=== PATIENT | female | born 1985 | race Caucasian/White ===

== ENCOUNTER 2016-10-03 11:47 | Emergency (ER) | payer OTHER ==
[~2016-10-03] VITALS: Ht 167.6 cm; Wt 104.3 kg
[2016-10-03] MEDS ORDERED: DIAZ10TA3 (12:18)
[2016-10-03] MEDS ORDERED: OXYC-471 (12:18)
[2016-10-03] MEDS ORDERED: CYCL10TA9 (12:18)
[2016-10-03] MEDS ORDERED: TRAM50TA2 (12:18)
[2016-10-03] MEDS ORDERED: METH4TAB PO (13:16)
[2016-10-03] MEDS ORDERED: ONDA4TAB8 PO (13:16)
--- NOTE | 2016-10-03 13:16 | ED Upper Extremity ---
General Chief Complaint: Upper Extremity Stated Complaint: RT ARM TINGLING, NECK PAIN, PREVIOUS WC INJ Nursing Triage Note: PT CO OF R ARM NUMBNESS, TINGLING AND PAIN WHEN USING THE R ARM AND PAIN AT NITE. PT HAD SURG IN ON JUN 01 FOR SHOULDER INJURY. PT STATES SENT BY ATTOURNEY. PT STATES HAS APPT IN ON OCT [address] FOR NUMBNESS. Nursing Sepsis Screen: No Definite Risk Source: patient History of Present Illness Time seen by provider: 13:00 Initial Comments PT C/O CHRONIC TINGLING/NUMBNESS AND PAIN TO RIGHT ARM C/O CHRONIC PAIN TO RIGHT LATERAL NECK AND TRAPEZIUS MUSCLE AREA--WORSE WITH RAISING RIGHT ARM OR LAYING ON IT. PT HAD SURGERY ON RIGHT SHOULDER FOR LABRAL TEAR 06/01/[address] 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 PT STATES SHE HAS BEEN TO 4 DIFFERENT DOCTORS AFTER HER SURGERY FOR THIS PROBLEM , AND WAS SEEN 08/23 AND WAS REFERRED TO ANOTHER DR FOR PAIN --DR. AVALOS IN [facility]. HAS AN APPOINTMENT 10/18/16 PT STATES WORK HAS REFUSED TO SEND HER TO ANOTHER DR, AND HER PORTAL ADMINISTRATOR TOLD HER TO COME HERE HER DR. IN [facility]-DR. JOLLY--HAS REFUSED TO SEE HER FOR THIS PROBLEM, IT IS WORK-RELATED. PT IS RIGHT HANDED NO NEW INJURY SYMPTOMS NO DIFFERENT TODAY HAS NOT TAKEN ANYTHING FOR PAIN TODAY--HAS TRAMADOL, PERCOCET AND FLEXERIL AT HOME. PCP: DR. JOLLY, [facility] Allergies and Home Medications Allergies Coded Allergies: hydrocodone (Verified Allergy, Mild, 10/03/16) sulfamethoxazole (Verified Allergy, Mild, 10/03/16) trimethoprim (Verified Allergy, Mild, 10/03/16) Home Medications Cyclobenzaprine HCl 10 Mg Tablet #90 (Reported) Diazepam 10 Mg Tablet #120 (Reported) Methylprednisolone 4 Mg Tab.ds.pk #1 4 MG PO UD Prescribed by: RUSS HUDSON on 10/03/16 1316 Ondansetron 4 Mg Tab.rapdis #10 4 MG PO Q4H Prescribed by: RUSS HUDSON on 10/03/16 1316 Oxycodone HCl/Acetaminophen 1 Each Tablet #60 (Reported) Tramadol HCl 50 Mg Tablet #120 (Reported) Constitutional: no symptoms reported Respiratory: no symptoms reported Cardiovascular: no symptoms reported Gastrointestinal: no symptoms reported Genitourinary: no symptoms reported Musculoskeletal: see HPI Skin: no symptoms reported Psychiatric/Neurological: See HPI Past Aefsmul-Falhwt-Thgrbf Hx Patient Social History Alcohol Use: Occasionally Uses Recreational Drug Use: No Smoking Status: Current Everyday Smoker Type Used: Cigarettes Recent Foreign Travel: No Contact w/Someone Who Travel: No Recent Infectious Disease Expo: No Recent Hopitalizations: No Physical Abuse Screen: No Sexual Abuse: No Seasonal Allergies Seasonal Allergies: No Surgeries HX Surgeries: Yes (R SHOULDER SURGERY FOR LABRAL TEAR 05/2016; 3 LEFT SHOULDER SURGERIES; ECTOPIC WITH SALPINGECTOMY; ) Surgeries: Gallbladder, Orthopedic, Tubal Ligation Respiratory Hx Respiratory Disorders: No Cardiovascular Hx Cardiac Disorders: No Neurological Hx Neurological Disorders: No Genitourinary Hx Genitourinary Disorders: No Gastrointestinal Hx Gastrointestinal Disorders: No Musculoskeletal Hx Musculoskeletal Disorders: Yes HEENT HX ENT Disorders: No Cancer Hx Cancer: No Psychosocial Hx Psychiatric Problems: Yes Behavioral Health Disorders: Anxiety Integumentary HX Skin/Integumentary Disorder: No Blood Transfusions Hx Blood Disorders: No Physical Exam Vital Signs Vital Sign - Last 12Hours 10/03/16 12:06 Temp 98.4 Pulse 86 Resp 18 B/P 154/95 Pulse Ox 97 Capillary Refill : Less Than 3 Seconds General Appearance: WD/WN HEENT: PERRL/EOMI Neck: tender lateral (ON RIGHT WITH MUSCLE SPASMS) Cardiovascular: regular rate, rhythm no murmur Respiratory: normal breath sounds no respiratory distress no accessory muscle use Gastrointestinal: normal bowel sounds soft Back: no CVA tenderness other (TENDERNESS AND MUSCLE SPASMS OVER RIGHT TRAPEZIUS MUSCLE--PALPATION REPRODUCES SYMPTOMS) Shoulder: non-tender no evidence of injury normal ROM Elbow/Forearm: normal inspection Wrist: Yes normal inspection Hand: normal inspection Neurologic/Tendon: normal sensation normal motor functions normal tendon functions Neurologic/Psychiatric: ad operations associate II-XII nml as tested no motor/sensory deficits ( HAS SUBJECTIVE TINGLING, BUT HAS SENSATION TO LIGHT TOUCH) alert normal mood/ affect oriented x 3 Skin: normal color warm/dryNo rash Progress/Results/Core Measures Results/Orders Vital Signs/I&O Blood Pressure Mean: 114 Departure Impression Impression: Primary Impression: CHRONIC RIGHT ARM RADICULOPATHY AND PARESTHESIAS Disposition: 01 HOME, SELF-CARE Condition: Stable Departure-Patient Inst. Referrals: CECIL JOLLY DO (PCP/Family) Primary Care Physician Patient Instructions: Radiculopathy (DC) Add. Discharge Instructions: ALTERNATE ICE AND HEAT TO AREA AT 20 MINUTE INTERVALS FOLLOW UP WITH YOUR SURGEON FOR FURTHER CARE KEEP YOUR SCHEDULED APPOINTMENT THIS MONTH All discharge instructions reviewed with patient and/or family. Voiced understanding. Scripts Ondansetron (Zofran Odt)4 Mg Tab.rapdis4 Mg PO Q4H Nausea/Vomiting #10 TAB Prov:RUSS HUDSON DO 10/03/16 Methylprednisolone (Medrol)4 Mg Tab.ds.pk4 Mg PO UD #1 PKG Prov:RUSS HUDSON DO 10/03/16 RUSS HUDSON DO Oct 03, 2016 13:16
[2016-10-03 13:20] VITALS: BP 154/95
== END 2016-10-03 13:20 | disposition home or self-care (01) ==
LOC: EDUNIT# 11:47 → ER 11:55
DX: M54.12 Radiculopathy, cervical region (principal); R20.2 Paresthesia of skin; M62.830 Muscle spasm of back; F17.210 Nicotine dependence, cigarettes, uncomplicated
CPT/HCPCS: 99283

== ENCOUNTER 2017-12-26 15:24 | Emergency (ER) | payer BC, OTHER ==
[~2017-12-26] VITALS: Ht 167.6 cm; Wt 104.3 kg
[~2017-12-26 15:24] MED LIST: CYCL10TA9; DIAZ10TA3; METH4TAB PO; ONDA4TAB8 PO; OXYC-471; TRAM50TA2
--- OUTSIDE RECORDS SUMMARY | 2017-12-26 15:38 | XMS REPORT | Clinical Summary ---
Author Author [facility] Organization [facility] Address Unknown Phone Unavailable Care Team Providers Care Title Investigator Name Role Phone Domingo Deluna PCP Source Comments Some departments are not documenting in the electronic medical record. If you do not see the information that you expected, contact Release of Information in the Health Information Management department at [phone] for further assistance in locating additional records.[facility] Allergies Active Allergy Reactions Severity Noted Date Comments Sulfamethoxazole-Trimetho HIVES, VOMITING Medium 01/02/2017 prim Hydrocodone ITCHING Low 01/02/2017 Current Medications Prescription Sig. Disp. Refills Start End Date Status Date oxyCODONE/acetaminophen Take 1 Tab by mouth every Active (PERCOCET) 10/325 mg 6 hours as needed for tablet Pain phentermine(+) (ADIPEX-P) Take 37.5 mg by mouth Active 37.5 mg tablet every morning. diclofenac sodium DR Take 75 mg by mouth twice Active (VOLTAREN) 75 mg tablet daily. Take with food. diazePAM (VALIUM) 10 mg Take 10 mg by mouth every Active tablet 6 hours as needed for Anxiety. cyclobenzaprine Take 10 mg by mouth three Active (FLEXERIL) 10 mg tablet times daily as needed for Muscle Cramps. citalopram (CELEXA) 40 mg Take 40 mg by mouth Active tablet daily. naloxegol (MOVANTIK) 25 Take by mouth daily. Active mg tablet sumatriptan succinate Take 100 mg by mouth as Active (IMITREX) 100 mg tablet Needed for Migraine symptoms. Dose may be repeated in 2 hours if needed. Max of 2 tablets in 24 hours. ALPRAZolam(+) (XANAX) 2 Take 2 mg by mouth at Active mg tablet bedtime as needed for Anxiety. Active Problems Not on file Social History Tobacco Use Types Packs/Day Years Used Date Current Every Day Smoker Cigarettes 0.1 Sex Assigned at Date Recorded Not on file Last Filed Vital Signs Vital Sign Reading Time Taken Blood Pressure 143/81 03/16/2017 2:58 PM CDT Pulse 109 03/16/2017 2:58 PM CDT Temperature 36.9 C (98.4 F) 01/02/2017 10:57 AM CDT Respiratory Rate - - Oxygen Saturation 96% 03/16/2017 2:58 PM CDT Inhaled Oxygen - - Concentration Weight 108.9 kg (240 lb) 03/16/2017 2:58 PM CDT Height 167.6 cm (5' 6") 03/16/2017 2:58 PM CDT Body Mass Index 38.74 03/16/2017 2:58 PM CDT Plan of Treatment Health Maintenance Due Date Last Done Comments PHYSICAL (COMPREHENSIVE) 1990 EXAM PERTUSSIS VACCINE 1994 HIV SCREENING 1998 TETANUS VACCINE 2000 CERVICAL CANCER SCREENING 2013 INFLUENZA VACCINE 07/02/2018 Results Not on filefrom Last 3 Months
[2017-12-26 16:16] LABS: BASOPHILS # (AUTO) 0.1 10^3/uL (0.0-0.1); BASOPHILS % (AUTO) 1 % (0-10); EOSINOPHILS # (AUTO) 0.3 10^3/uL (0.0-0.3); EOSINOPHILS % (AUTO) 4 % (0-10); HEMATOCRIT 43 % (35-52); HEMOGLOBIN 14.6 G/DL (11.5-16.0); LYMPHOCYTES # (AUTO) 2.2 X 10^3 (1.0-4.0); LYMPHOCYTES % (AUTO) 29 % (12-44); MEAN CORPUSCULAR HEMOGLOBIN 31 PG (25-34); MEAN CORPUSCULAR HGB CONC 34 G/DL (32-36); MEAN CORPUSCULAR VOLUME 91 FL (80-99); MEAN PLATELET VOLUME 8.9 FL (7.4-10.4); MONOCYTES # (AUTO) 0.8 X 10^3 (0.0-1.0); MONOCYTES % (AUTO) 11 % (0-12); NEUTROPHILS # (AUTO) 4.4 X 10^3 (1.8-7.8); NEUTROPHILS % (AUTO) 56 % (42-75); PLATELET COUNT 285 10^3/uL (130-400); RED BLOOD COUNT 4.73 10^6/uL (4.35-5.85); RED CELL DISTRIBUTION WIDTH 12.8 % (10.0-14.5); WHITE BLOOD COUNT 7.8 10^3/uL (4.3-11.0)
[2017-12-26 16:18] LABS: BILIRUBIN,URINE NEGATIVE (NEGATIVE); CLARITY,URINE CLEAR; COLOR,URINE YELLOW; GLUCOSE, URINE (UA) NEGATIVE (NEGATIVE); KETONES,URINE NEGATIVE (NEGATIVE); LEUKOCYTE ESTERASE ,URINE 1+ (NEGATIVE); NITRITE,URINE NEGATIVE (NEGATIVE); PH,URINE 5 (5-9); PROTEIN,URINE NEGATIVE (NEGATIVE); UROBILINOGEN,URINE NORMAL (NORMAL)
--- NOTE | 2017-12-26 16:22 | ED General ---
General Chief Complaint: Lower Extremity Stated Complaint: POSS KIDNEY FAILURE-SWELLING/PAIN FROM ABD TO FEET Nursing Triage Note: c/o leg swelling x 2 weeks. Pt has been on chronic pain meds for months. Claims she failed a drug screen and was taken off her Dilaudid 3 weeks ago. Pt was prescribed Suboxone approximately 3 weeks ago. Nursing Sepsis Screen: No Definite Risk Source of Information: Patient Exam Limitations: No Limitations History of Present Illness Date Seen by Provider: Dec 26, 2017 Time Seen by Provider: 15:45 Initial Comments Here with report of bilateral leg swelling for the last 2 weeks. She started Suboxone treatment at about the same time and noticed leg swelling afterwards. She was put on Lasix 20 mg daily a few days ago but that hasn't helped. Notes persistent lower extremity edema. Denies breathing problems or other concerns. Timing/Duration: Getting Worse Severity: Moderate Associated Systoms: No Chest Pain, No Fever/Chills, No Nausea/Vomiting, No Shortness of Air, No Weakness Allergies and Home Medications Allergies Coded Allergies: hydrocodone (Verified Allergy, Mild, 10/03/16) sulfamethoxazole (Verified Allergy, Mild, 10/03/16) trimethoprim (Verified Allergy, Mild, 10/03/16) Home Medications Methylprednisolone 4 Mg Tab.ds.pk, 4 MG PO UD Prescribed by: RUSS HUDSON on 10/03/16 1316 Ondansetron 4 Mg Tab.rapdis, 4 MG PO Q4H Prescribed by: RUSS HUDSON on 10/03/16 1316 Patient Home Medication List Home Medication List Reviewed: Yes Constitutional: see HPI, No chills, No fever Respiratory: no symptoms reported Cardiovascular: No chest pain, edema, No palpitations Gastrointestinal: No abdominal pain, No nausea, No vomiting Genitourinary: no symptoms reported Musculoskeletal: joint pain, muscle pain Skin: no symptoms reported Psychiatric/Neurological: No Symptoms Reported All Other Systems Reviewed Negative Unless Noted: Yes Past Vgnmgvi-Suqgpa-Eqfemv Hx Patient Social History Alcohol Use: Denies Use Recreational Drug Use: No Smoking Status: Current Everyday Smoker Type Used: Cigarettes Recent Foreign Travel: No Contact w/Someone Who Travel: No Recent Infectious Disease Expo: No Recent Hopitalizations: No Seasonal Allergies Seasonal Allergies: No Surgeries History of Surgeries: Yes Surgeries: Gallbladder, Orthopedic, Tubal Ligation Cardiovascular History of Cardiac Disorders: Yes Cardiac Disorders: Hypertension Neurological History of Neurological Disord: Yes Neurological Disorders: Headaches /Migraines Genitourinary History of Genitourinary Disor: No Gastrointestinal History of Gastrointestinal Di: No Musculoskeletal History of Musculoskeletal Dis: Yes Musculoskeletal Disorders: Back Injury Endocrine History of Endocrine Disorders: No HEENT History of HEENT Disorders: No Cancer History of Cancer: No Psychosocial History of Psychiatric Problem: Yes Behavioral Health Disorders: ADD/ADHD, Anxiety Reviewed Nursing Assessment Reviewed/Agree w Nursing PMH: Yes Family Medical History Significant Family History: No Pertinent Family Hx Physical Exam Vital Signs Vital Signs - First Documented 12/26/17 15:56 Temp 97.5 Pulse 74 Resp 16 B/P (MAP) 128/92 (104) Pulse Ox 98 O2 Delivery Room Air Capillary Refill : Less Than 3 Seconds General Appearance: No Apparent Distress, WD/WN Neck: Non Tender, Supple Respiratory: Lungs Clear, Normal Breath Sounds Cardiovascular: Regular Rate, Rhythm, No Murmur Gastrointestinal: Non Tender, Soft Extremity: Pedal Edema (bilateral nonpitting moderate edema from the knees down ) Neurologic/Psychiatric: Alert, Oriented x3 Skin: Normal Color, Warm/Dry Progress/Results/Core Measures Suspected Sepsis Recent Fever Within 48 Hours: No Infection Criteria Present: Suspected New Infection New/Unexplained Altered Menta: No Sepsis Screen: No Definite Risk Sepsis Diagnosis: SIRS Temperature:97.5 Pulse: 74 Respiratory Rate: 16 Laboratory Tests 12/26/17 16:09: White Blood Count 7.8 Blood Pressure 128 /92 Mean: 104 Laboratory Tests 12/26/17 16:09: Creatinine 0.66, Platelet Count 285, Total Bilirubin 0.3 Results/Orders Lab Results Laboratory Tests Test 12/26/17 16:09 12/26/17 16:10 Range/Units White Blood Count 7.8 4.3-11.0 10^3/uL Red Blood Count 4.73 4.35-5.85 10^6/uL Hemoglobin 14.6 11.5-16.0 G/DL Hematocrit 43 35-52 % Mean Corpuscular Volume 91 80-99 FL Mean Corpuscular Hemoglobin 31 25-34 PG Mean Corpuscular Hemoglobin Concent 34 32-36 G/DL Red Cell Distribution Width 12.8 10.0-14.5 % Platelet Count 285 130-400 10^3/uL Mean Platelet Volume 8.9 7.4-10.4 FL Neutrophils (%) (Auto) 56 42-75 % Lymphocytes (%) (Auto) 29 12-44 % Monocytes (%) (Auto) 11 0-12 % Eosinophils (%) (Auto) 4 0-10 % Basophils (%) (Auto) 1 0-10 % Neutrophils # (Auto) 4.4 1.8-7.8 X 10^3 Lymphocytes # (Auto) 2.2 1.0-4.0 X 10^3 Monocytes # (Auto) 0.8 0.0-1.0 X 10^3 Eosinophils # (Auto) 0.3 0.0-0.3 10^3/uL Basophils # (Auto) 0.1 0.0-0.1 10^3/uL Sodium Level 139 135-145 MMOL/L Potassium Level 3.9 3.6-5.0 MMOL/L Chloride Level 103 98-107 MMOL/L Carbon Dioxide Level 29 21-32 MMOL/L Anion Gap 7 5-14 MMOL/L Blood Urea Nitrogen 6 L 7-18 MG/DL Creatinine 0.66 0.60-1.30 MG/DL Estimat Glomerular Filtration Rate > 60 BUN/Creatinine Ratio 9 Glucose Level 94 70-105 MG/DL Calcium Level 8.7 8.5-10.1 MG/DL Total Bilirubin 0.3 0.1-1.0 MG/DL Aspartate Amino Transf (AST/SGOT) 48 H 5-34 U/L Alanine Aminotransferase (ALT/SGPT) 49 0-55 U/L Alkaline Phosphatase 62 40-136 U/L B-Type Natriuretic Peptide < 10.0 <100.0 PG/ML Total Protein 6.8 6.4-8.2 GM/DL Albumin 3.7 3.2-4.5 GM/DL Thyroid Stimulating Hormone (TSH) 1.86 0.35-4.94 UIU/ML Urine Color YELLOW Urine Clarity CLEAR Urine pH 5 5-9 Urine Specific [place] 1.010 L 1.016-1.022 Urine Protein NEGATIVE NEGATIVE Urine Glucose (UA) NEGATIVE NEGATIVE Urine Ketones NEGATIVE NEGATIVE Urine Nitrite NEGATIVE NEGATIVE Urine Bilirubin NEGATIVE NEGATIVE Urine Urobilinogen NORMAL NORMAL MG/DL Urine Leukocyte Esterase 1+ H NEGATIVE Urine RBC (Auto) NEGATIVE NEGATIVE Urine RBC NONE /HPF Urine WBC 2-5 /HPF Urine Squamous Epithelial Cells 10-25 H /HPF Urine Crystals NONE /LPF Urine Bacteria FEW H /HPF Urine Casts NONE /LPF Urine Mucus NEGATIVE /LPF Urine Culture Indicated NO Urine Test NEGATIVE NEGATIVE My Orders Orders - MIKE SPRAGUE MD Hcg,Qualitative Urine (12/26/17 16:46) Furosemide Tablet (Lasix Tablet) (12/26/17 17:00) Vital Signs/I&O Vital Sign - Last 12Hours 12/26/17 15:56 Temp 97.5 Pulse 74 Resp 16 B/P (MAP) 128/92 (104) Pulse Ox 98 O2 Delivery Room Air Capillary Refill : Less Than 3 Seconds Blood Pressure Mean: 104 Progress Note : Progress Note Seen and evaluated. Labs and UA ordered. I did discuss with her about treatment for multiple medications and dependence/tolerance. She has been switched from Dilaudid to Suboxone. She does appear to be having some swelling after initiation of Suboxone. The small amount of Lasix that she was given has not affected currently. We will evaluate for kidney function and potential for increasing Lasix dosing. I did give her information on addiction treatment services at [facility] as she is looking for a local doctor. Patient will call. 1715: Labs reviewed. Lasix 40 mg by mouth times one now. We will continue the dosing for 2 more days. Discharged home with return precautions. Patient and family verbalize understanding instructions and agreement with plan. Departure Impression Impression: Primary Impression: Bilateral lower extremity edema Disposition: HOME, SELF-CARE Condition: Stable Departure-Patient Inst. Decision time for Depature: 17:19 Referrals: NO,LOCAL PHYSICIAN (PCP) Primary Care Physician FIDEL VERA MD Patient Instructions: Dependent Edema (DC) Add. Discharge Instructions: All discharge instructions reviewed with patient and/or family. Voiced understanding. You should take your Lasix 40 mg twice daily for the next 2 days and then return to your 20 mg daily dosing. You do not need to take her Lasix tonight as you have a 40 mg total dosing now. You should increase potassium in her diet for the next few days with bananas or tomatoes. Follow-up with your doctor or [facility] addiction treatment services as they can assist you with Suboxone treatment. This is preferred over narcotics. Return for worse pain, fever, vomiting, weakness, breathing problems or other concerns as needed. Copy Copies To 1: FIDEL VERA MD, TIMOTHY D MD Dec 26, 2017 16:22
[2017-12-26 16:39] LABS: ALANINE AMINOTRANSFERASE 49 U/L (0-55); ALBUMIN 3.7 GM/DL (3.2-4.5); ALKALINE PHOSPHATASE 62 U/L (40-136); BILIRUBIN,TOTAL 0.3 MG/DL (0.1-1.0); BUN/CREATININE RATIO 9; CALCIUM 8.7 MG/DL (8.5-10.1); CARBON DIOXIDE 29 MMOL/L (21-32); CHLORIDE 103 MMOL/L (98-107); CREATININE SERUM 0.66 MG/DL (0.60-1.30); GFR ESTIMATED > 60; GLUCOSE 94 MG/DL (70-105); POTASSIUM 3.9 MMOL/L (3.6-5.0); SODIUM 139 MMOL/L (135-145); TOTAL PROTEIN 6.8 GM/DL (6.4-8.2)
[2017-12-26 16:43] LABS: BACTERIA,URINE FEW /HPF
[2017-12-26] MEDS ORDERED: FUROSEMIDE 40 MG (LASIX) TAB PO ONE (17:00)
[2017-12-26 17:26] VITALS: BP 124/90
== END 2017-12-26 17:26 | disposition home or self-care (01) ==
LOC: EDUNIT# 15:24 → ER 15:26
DX: R60.0 Localized edema (principal); I10 Essential (primary) hypertension; G43.909 Migraine, unspecified, not intractable, without status migrainosus; F90.9 Attention-deficit hyperactivity disorder, unspecified type; F41.9 Anxiety disorder, unspecified; F17.210 Nicotine dependence, cigarettes, uncomplicated; Z88.5 Allergy status to narcotic agent; Z88.2 Allergy status to sulfonamides; Z98.51 Tubal ligation status; Z88.8 Allergy status to other drugs, medicaments and biological substances
CPT/HCPCS: 36415; 80053; 81000; 83880; 84443; 84703; 85025; 99283

== ENCOUNTER 2021-03-18 00:54 | Emergency (ER) | payer BC, MEDICAID, OTHER ==
[~2021-03-18] VITALS: Ht 168 cm; Wt 105.0 kg
[~2021-03-18 00:54] MED LIST changes: -OXYC-471; +OXYC1TAB11; -TRAM50TA2; +TRM50T
[2021-03-18 01:13] VITALS: BP 119/95
[2021-03-18 01:27] LABS: BILIRUBIN,URINE NEGATIVE (NEGATIVE); CLARITY,URINE SL CLOUDY; COLOR,URINE ORANGE; GLUCOSE, URINE (UA) TRACE (NEGATIVE); KETONES,URINE NEGATIVE (NEGATIVE); LEUKOCYTE ESTERASE ,URINE 3+ (NEGATIVE); NITRITE,URINE POSITIVE (NEGATIVE); PH,URINE 5.5 (5-9); PROTEIN,URINE 2+ (NEGATIVE)
[2021-03-18 01:50] LABS: AMORPHOUS SEDIMENT,UR RARE AMOR URATES /LPF; BACTERIA,URINE FEW /HPF; WBC,URINE >100 /HPF
[2021-03-18] MEDS ORDERED: PHEN-640 PO (01:57)
[2021-03-18] MEDS ORDERED: RX-NITROFURANTOIN 100 MG (MACROBID) CAP PPK#2 PO STA (01:57)
[2021-03-18] MEDS ORDERED: NITR-65 PO (01:57)
--- NOTE | 2021-03-18 01:57 | ED GU-Female ---
General Chief Complaint: - Urinary Stated Complaint: UTI SYMPTOMS Nursing Triage Note: C/O FREQUENT/PAINFUL URINATION. Nursing Sepsis Screen: No Definite Risk Source: patient History of Present Illness Date Seen by Provider: Mar 18, 2021 Time Seen by Provider: 01:14 Initial Comments PT ARRIVES VIA POV C/O UTI SYMPTOMS X 4 DAYS C/O URINARY FREQUENCY AND PAIN ON URINATION NO BLOOD IN URINE NO FEVER/SWEATS/CHILLS NO ABDOMINAL OR PELVIC PAIN NO BACK PAIN NO NAUSEA/VOMITING NO VAGINAL DISCHARGE OR HEALTH CARE LEGAL ASSISTANT SYMPTOMS LMP BEGAN 03/10/21. NORMAL. PT HAS HAD BTL PT HAS BEEN TAKING OTC AZO CRANBERRY PILLS, AND REGULAR AZO, WITHOUT RELIEF PT HAS HAD RARE UTI'S IN PAST, AND THIS IS SIMILAR PCP: [facility] Allergies and Home Medications Allergies Coded Allergies: hydrocodone (Verified Allergy, Mild, 10/03/16) sulfamethoxazole (Verified Allergy, Mild, 10/03/16) trimethoprim (Verified Allergy, Mild, 10/03/16) Home Medications Methylprednisolone 4 Mg Tab.ds.pk, 4 MG PO UD Prescribed by: RUSS HUDSON on 10/03/16 1316 Nitrofurantoin Monohyd/M-Cryst 100 Mg Capsule, 1 TAB PO BID Prescribed by: RUSS HUDSON on 03/18/21 0157 Ondansetron 4 Mg Tab.rapdis, 4 MG PO Q4H Prescribed by: RUSS HUDSON on 10/03/16 1316 Phenazopyridine HCl 200 Mg Tablet, 1 TAB PO TID Prescribed by: RUSS HUDSON on 03/18/21 0157 Patient Home Medication List Home Medication List Reviewed: Yes Review of Systems Review of Systems Constitutional: no symptoms reported Respiratory: no symptoms reported Cardiovascular: no symptoms reported Gastrointestinal: no symptoms reported; No abdominal pain, No diarrhea, No loss of appetite, No nausea, No vomiting Genitourinary: see HPI, burning; denies discharge; dysuria, frequency; denies flank pain, denies hematuria, denies incontinence; urgency : No LMP: Mar 10, 2021 Musculoskeletal: no symptoms reported; No back pain Skin: no symptoms reported; No rash Psychiatric/Neurological: No Symptoms Reported Endocrine: No Symptoms Reported Hematologic/Lymphatic: No Symptoms Reported Past Siquwsg-Jqligq-Ozozql Hx Past Med/Social Hx: Reviewed and Corrections made Patient Social History Alcohol Use: Occasionally Uses Drug of Choice: CANNIBUS, METH-SMOKES METH, DENIES IV USE Smoking Status: Current Everyday Smoker (1/2 PPD) Type Used: Cigarettes 2nd Hand Smoke Exposure: Yes Recent Infectious Disease Expo: No Recent Hopitalizations: No Substance type: Methamphetamine, Marijuana Immunizations Up To Date Tetanus Booster (TDap): Unknown Seasonal Allergies Seasonal Allergies: No Past Medical History Surgeries: Yes (SEE BELOW) Gallbladder, Orthopedic, Tubal Ligation Respiratory: No Cardiac: Yes (NO MEDICATIONS) Hypertension Neurological: Yes Headaches /Migraines : No Reproductive Disorders: No (ECTOPIC ) HEALTH CARE LEGAL ASSISTANT History: Tubal Ligation Genitourinary: No Gastrointestinal: No Musculoskeletal: Yes Back Injury, Chronic Back Pain Endocrine: No HEENT: No Cancer: No Psychosocial: Yes ADD/ADHD, Anxiety Integumentary: No (EXTENSIVE TATTOOS) Blood Disorders: No Family Medical History No Pertinent Family Hx SOCIAL HISTORY: -ETOH--OCCASIONAL USE -DRUGS--THC, METH USE--SMOKES IT, DENIES IV USE -SMOKES 1/2 PPD CIGARETTES PAST SURGICAL HISTORY: -BILATERAL TUBAL LIGATION -SURGERY FOR ECTOPIC /SALPINGECTOMY--PT DOES NOT KNOW WHICH SIDE -BILATERAL CARPAL TUNNEL SURGERY -BILATERAL SHOULDER SURGERY --TWICE ON EACH SIDE -CHOLECYSTECTOMY Physical Exam Vital Signs Vital Signs - First Documented 03/18/21 01:13 Temp 36.5 Pulse 102 Resp 18 B/P (MAP) 119/95 (103) Pulse Ox 96 O2 Delivery Room Air Capillary Refill : Less Than 3 Seconds Height, Weight, BMI Height: 5'6.00" Weight: 230lbs. oz. 104.095832bw; 37.00 BMI Method:Estimated General Appearance: WD/WN, no apparent distress, other (HAIR MULTICOLORED--PINK AND TURQUOISE. WALKS UPRIGHT AND MOVES WITHOUT DIFFICULTY. LAYS COMPLETELY OUTSTRETCHED. DOES NOT APPEAR TO BE IN ANY DISCOMFORT OR DISTRESS) HEENT: PERRL/EOMI Neck: normal inspection Cardiovascular: regular rate, rhythm Respiratory: normal breath sounds, no respiratory distress, no accessory muscle use Gastrointestinal: normal bowel sounds, non tender, soft Back: normal inspection, no CVA tenderness, no vertebral tenderness Extremities: normal inspection, normal capillary refill Neurologic/Psychiatric: no motor/sensory deficits, alert, normal mood/affect, oriented x 3 Skin: normal color, warm/dry, tattoos/piercings (EXTENSIVE TATTOOS) Progress/Results/Core Measures Suspected Sepsis Recent Fever Within 48 Hours: No Infection Criteria Present: None New/Unexplained Altered Menta: No Sepsis Screen: No Definite Risk SIRS Temperature: Pulse: 102 Respiratory Rate: 18 Blood Pressure 119 /95 Mean: 103 Results/Orders Lab Results Laboratory Tests Test 03/18/21 01:12 03/18/21 01:20 Range/Units Urine Opiates Screen NEGATIVE NEGATIVE Urine Oxycodone Screen NEGATIVE NEGATIVE Urine Methadone Screen NEGATIVE NEGATIVE Urine Propoxyphene Screen NEGATIVE NEGATIVE Urine Barbiturates Screen NEGATIVE NEGATIVE Ur Tricyclic Antidepressants Screen NEGATIVE NEGATIVE Urine Phencyclidine Screen NEGATIVE NEGATIVE Urine Amphetamines Screen POSITIVE H NEGATIVE Urine Methamphetamines Screen POSITIVE H NEGATIVE Urine Benzodiazepines Screen NEGATIVE NEGATIVE Urine Cocaine Screen NEGATIVE NEGATIVE Urine Cannabinoids Screen POSITIVE H NEGATIVE Urine Color ORANGE Urine Clarity SL CLOUDY Urine pH 5.5 5-9 Urine Specific [place] 1.025 H 1.016-1.022 Urine Protein 2+ H NEGATIVE Urine Glucose (UA) TRACE H NEGATIVE Urine Ketones NEGATIVE NEGATIVE Urine Nitrite POSITIVE H NEGATIVE Urine Bilirubin NEGATIVE NEGATIVE Urine Urobilinogen 4.0 < = 1.0 MG/DL Urine Leukocyte Esterase 3+ H NEGATIVE Urine RBC (Auto) 3+ H NEGATIVE Urine RBC 5-10 H /HPF Urine WBC >100 H /HPF Urine Crystals PRESENT H /LPF Urine Amorphous Sediment RARE ANDRE URATES H /LPF Urine Bacteria FEW H /HPF Urine Casts NONE /LPF Urine Mucus NEGATIVE /LPF Urine Culture Indicated YES My Orders Orders - RUSS HUDSON DO Urine Bedside (03/18/21 01:14) Ua Culture If Indicated (03/18/21 01:14) Urine Culture (03/18/21 01:20) Drug Screen Stat (Urine) (03/18/21 01:55) Rx-Nitrofurantoin Bryan (Rx-Macrobid) (03/18/21 01:57) Phenazopyridine Tablet (Pyridium Tablet) (03/18/21 02:00) Medications Given in ED Current Medications Medications Dose Ordered Sig/Ramo Route Start Time Stop Time Status Last Admin Dose Admin Phenazopyridine HCl 200 mg ONCE ONCE PO 03/18/21 02:00 03/18/21 02:01 DC 03/18/21 02:02 200 MG Vital Signs/I&O 03/18/21 01:13 Temp 36.5 Pulse 102 Resp 18 B/P (MAP) 119/95 (103) Pulse Ox 96 O2 Delivery Room Air Capillary Refill : Less Than 3 Seconds Blood Pressure Mean: 103 Departure Impression Primary Impression: Urinary tract infection Additional Impression: Illicit drug use Disposition: HOME, SELF-CARE Condition: Stable Departure-Patient Inst. Decision time for Depature: 01:55 Referrals: [facility] (PCP/Family) Primary Care Physician Patient Instructions: Urinary Tract Infection, Adult (DC) Add. Discharge Instructions: LOTS OF CLEAR LIQUIDS--NO COFFEE, POP OR TEA TYLENOL AND MOTRIN NEEDED FOR PAIN FOLLOW UP WITH YOUR DR IN 3-4 DAYS IF NO BETTER All discharge instructions reviewed with patient and/or family. Voiced understanding. Scripts Phenazopyridine HCl (Pyridium) 200 Mg Tablet 1 TAB PO TID, #15 TAB Prov: RUSS HUDSON DO 03/18/21 Nitrofurantoin Monohyd/M-Cryst (Macrobid 100 mg Capsule) 100 Mg Capsule 1 TAB PO BID, #20 CAP Prov: RUSS HUDSON DO 03/18/21 RUSS HUDSON DO Mar 18, 2021 01:57
[2021-03-18] MEDS ORDERED: PHENAZOPYRIDINE 100 MG (PYRIDIUM) TABLET PO ONE (02:00)
[2021-03-18 02:24] LABS: AMPHETAMINE SCREEN, URINE POSITIVE (NEGATIVE); BARBITURATE SCREEN URINE NEGATIVE (NEGATIVE); BENZODIAZEPINES SCREEN URINE NEGATIVE (NEGATIVE); COCAINE SCREEN URINE NEGATIVE (NEGATIVE); METHAMPHETAMINE SCREEN URINE S POSITIVE (NEGATIVE); OPIATE SCREEN URINE NEGATIVE (NEGATIVE); TRICYCLIC ANTIDEPRESSANTS SCRE NEGATIVE (NEGATIVE)
[2021-03-18 02:25] LABS: CANNABINOID SCREEN, URINE POSITIVE (NEGATIVE); METHADONE STAT NEGATIVE (NEGATIVE); OXYCODONE STAT NEGATIVE (NEGATIVE); PROPOXYPHENE STAT NEGATIVE (NEGATIVE)
== END 2021-03-18 02:04 | disposition home or self-care (01) ==
LOC: EDUNIT# 00:54 → ER 00:56
DX: N39.0 Urinary tract infection, site not specified (principal); F19.90 Other psychoactive substance use, unspecified, uncomplicated; I10 Essential (primary) hypertension; F17.210 Nicotine dependence, cigarettes, uncomplicated; Z79.52 Long term (current) use of systemic steroids
CPT/HCPCS: 80306; 81000; 84703; 87077; 87088; 87186; 99283

== ENCOUNTER 2023-08-05 13:41 | Emergency (ER) | payer MEDICAID ==
[~2023-08-05] VITALS: Ht 165 cm; Wt 79.0 kg
[~2023-08-05 13:41] MED LIST changes: +CYCL10TA25; -CYCL10TA9; +NITR-65 PO; +PHEN-640 PO
[2023-08-05 13:53] VITALS: BP 150/98
--- NOTE | 2023-08-05 14:29 | ED Upper Extremity ---
General Chief Complaint: Upper Extremity Stated Complaint: RIGHT HAND INJ Nursing Triage Note: PT TO ED W/ C/O RT HAND PAIN ET SWELLING ONSET AFTER "PUNCHING HER CAR WHILE CHASING HER DOG" A FEW DAYS AGO. SWELLING NOTED OVER 5TH METACARPAL RT HAND. NO OTHER C/O VOICED. Source: patient Exam Limitations: no limitations History of Present Illness Date Seen by Provider: Aug 05, 2023 Time Seen by Provider: 13:56 Initial Comments 38-year-old female presents to the ER with right hand pain and swelling. She states that on July 29 or she punched her car because somebody let her dog out. She states that the pain and swelling have not improved. She thought that last night the swelling was worse, reports it is a little bit better today. She has been taking Tylenol and ibuprofen without relief. Has not taken any medications today. Allergies and Home Medications Allergies Coded Allergies: hydrocodone (Verified Allergy, Mild, 10/03/16) sulfamethoxazole (Verified Allergy, Mild, 10/03/16) trimethoprim (Verified Allergy, Mild, 10/03/16) Patient Home Medication List Home Medication List Reviewed: Yes Cyclobenzaprine HCl (Cyclobenzaprine HCl) 10 Mg Tablet, (Reported) Entered as Reported by: HAMMAD BOTELLO on 10/03/16 1218 Diazepam (Diazepam) 10 Mg Tablet, (Reported) Entered as Reported by: HAMMAD BOTELLO on 10/03/16 1218 Methylprednisolone (Medrol) 4 Mg Tab.ds.pk, 4 MG PO UD Prescribed by: RUSS HUDSON on 10/03/16 1316 Nitrofurantoin Monohyd/M-Cryst (Macrobid 100 mg Capsule) 100 Mg Capsule, 1 TAB PO BID Prescribed by: RUSS HUDSON on 03/18/21 0157 Ondansetron (Zofran Odt) 4 Mg Tab.rapdis, 4 MG PO Q4H Prescribed by: RUSS HUDSON on 10/03/16 1316 Oxycodone HCl/Acetaminophen (Oxycodone-Acetaminophen 5-325) 1 Each Tablet, (Reported) Entered as Reported by: HAMMAD BOTELLO on 10/03/16 1218 Phenazopyridine HCl (Pyridium) 200 Mg Tablet, 1 TAB PO TID Prescribed by: RUSS HUDSON on 03/18/21 0157 Tramadol HCl (Tramadol HCl) 50 Mg Tablet, (Reported) Entered as Reported by: HAMMAD BOTELLO on 10/03/16 1218 Tramadol HCl (Tramadol HCl) 50 Mg Tablet, 50 MG PO Q6H Prescribed by: Lianne Alcala on 08/05/23 1540 Review of Systems Constitutional: see HPI Past Ohxrtkh-Hwmobx-Hxcmwy Hx Patient Social History Tobacco Use?: Yes Tobacco type used: Cigarettes Smoking Status: Current Everyday Smoker Use of E-Cig and/or Vaping dev: No Substance use?: Yes Substance type: Marijuana Additional substance use comme: YESTERDAY Alcohol Use?: Yes Alcohol Frequency: Once in a while Pt feels they are or have been: No Immunizations Up To Date Tetanus Booster (TDap): Unknown Seasonal Allergies Seasonal Allergies: No Past Medical History Surgery/Hospitalization HX: ORTHOPEDIC Surgeries: Yes (SEE BELOW) Gallbladder, Orthopedic, Tubal Ligation Respiratory: No Cardiac: Yes (NO MEDICATIONS) Hypertension Neurological: Yes Headaches /Migraines Reproductive Disorders: No (ECTOPIC ) [employer] History: Tubal Ligation Genitourinary: No Gastrointestinal: No Musculoskeletal: Yes Back Injury, Chronic Back Pain Endocrine: No HEENT: No Cancer: No Psychosocial: Yes ADD/ADHD, Anxiety Integumentary: No (EXTENSIVE TATTOOS) Blood Disorders: No Family Medical History No Pertinent Family Hx SOCIAL HISTORY: -ETOH--OCCASIONAL USE -DRUGS--THC, METH USE--SMOKES IT, DENIES IV USE -SMOKES 1/2 PPD CIGARETTES PAST SURGICAL HISTORY: -BILATERAL TUBAL LIGATION -SURGERY FOR ECTOPIC /SALPINGECTOMY--PT DOES NOT KNOW WHICH SIDE -BILATERAL CARPAL TUNNEL SURGERY -BILATERAL SHOULDER SURGERY --TWICE ON EACH SIDE -CHOLECYSTECTOMY Physical Exam Vital Signs Vital Signs - First Documented 08/05/23 13:53 Temp 36.8 Pulse 97 Resp 20 B/P (MAP) 150/98 (115) Pulse Ox 99 O2 Delivery Room Air Capillary Refill : Less Than 3 Seconds Height, Weight, BMI Height: 5'6.00" Weight: 230lbs. oz. 104.180134gw; 29.00 BMI Method:Estimated General Appearance: WD/WN, no apparent distress Neck: full range of motion, normal inspection Cardiovascular: regular rate, rhythm Respiratory: lungs clear, normal breath sounds, no respiratory distress, no accessory muscle use Wrist: Yes normal inspection, Yes non-tender, Yes no evidence of injury, Yes normal ROM (Pulses intact) Hand: Right (Sensation intact distally, cap refill less than 2 seconds), swelling Neurologic/Psychiatric: alert, normal mood/affect Skin: normal color, warm/dry Progress/Results/Core Measures Results/Orders My Orders Orders - LIANNE JADE APRN Ketorolac Injection (Ketorolac Injection (08/05/23 14:30) Acetaminophen Tablet (Acetaminophen Ta (08/05/23 14:30) Medications Given in ED Current Medications Medications Dose Ordered Sig/Ramo Route Start Time Stop Time Status Last Admin Dose Admin Acetaminophen 1,000 mg ONCE ONCE PO 08/05/23 14:30 08/05/23 14:31 DC 08/05/23 14:31 1,000 MG Ketorolac Tromethamine 15 mg ONCE ONCE IM 08/05/23 14:30 08/05/23 14:31 DC 08/05/23 14:32 15 MG Vital Signs/I&O 08/05/23 13:53 Temp 36.8 Pulse 97 Resp 20 B/P (MAP) 150/98 (115) Pulse Ox 99 O2 Delivery Room Air Blood Pressure Mean: 115 Progress Progress Note : Progress Note Patient seen and evaluated, resting comfortably in recliner, no acute distress. Based on exam and symptoms, x-ray of right hand ordered. 1513 x-ray reviewed. It shows mildly comminuted extra-articular proximal fifth metacarpal fracture. Patient placed in a ulnar gutter splint. Will discharge with prescription for tramadol. Patient instructed to follow-up with orthopedics. Discharge instructions and return precautions provided. Diagnostic Imaging Diagonstic Imaging: Xray Plain Films/CT/US/NM/MRI: hand Comments [facility], [place] NAME: DOMINGO BUENROSTRO [facility] REC#: [id number] PT STATUS: REG ER : 1985 PHYSICIAN: MIKE SPRAGUE MD ADMIT DATE: 08/05/23/ER Signed Date of Exam:08/05/23 HAND, RIGHT, 3 VIEWS INDICATION: Punching injury, pain FINDINGS: Fractures of the base of the 5th metacarpal with no substantial angulation or displacement. No appreciable articular extension but the fracture is somewhat comminuted. The remaining bony structures of the wrist and hand appeared intact. IMPRESSION: Mildly comminuted extra-articular proximal 5th metacarpal fracture. Dictated by: Dictated on workstation # [id number] Dict: 08/05/231423 Trans: 08/05/231441 [facility] [id number] Interpreted by: CONNER RODRIGUEZ Electronically signed by: CONNER RODRIGUEZ 08/05/23 144 Departure Impression Primary Impression: Fracture of hand Disposition: HOME, SELF-CARE Condition: Stable Departure-Patient Inst. Decision time for Depature: 15:13 Referrals: [facility] [place]) Primary Care Physician LIZZ ANNE MD, MICHAEL P MD Patient Instructions: Hand Fracture (DC) Add. Discharge Instructions: Follow-up with orthopedics, either Dr. Tucker or Dr. Anne, or an orthopedic doctor of your choice. Keep the splint in place at all times, do not get it wet. Cover it with a plastic bag or plastic wrap when showering. Take tramadol as needed for pain. You may also take Tylenol and ibuprofen. Return if you are having severe pain, numbness or tingling or discoloration of your fingers, or any other new, concerning, or worsening symptoms. All discharge instructions reviewed with patient and/or family. Voiced understanding. Scripts Tramadol HCl (Tramadol HCl) 50 Mg Tablet 50 MG PO Q6H, #15 TAB 0 Refills Prov: LIANNE JADE APRN 08/05/23 LIANNE JADE APRN Aug 05, 2023 14:29
[2023-08-05] MEDS ORDERED: ACETAMINOPHEN 500 MG TABLET PO ONE (14:30)
[2023-08-05] MEDS ORDERED: KETOROLAC INJ 15 MG/ML VIAL IM ONE (14:30)
--- NOTE | 2023-08-05 14:34 | Diagnostic Imaging Report ---
INDICATION: Punching injury, pain FINDINGS: Fractures of the base of the 5th metacarpal with no substantial angulation or displacement. No appreciable articular extension but the fracture is somewhat comminuted. The remaining bony structures of the wrist and hand appeared intact. IMPRESSION: Mildly comminuted extra-articular proximal 5th metacarpal fracture. Dictated by: Dictated on workstation # [id number]
[2023-08-05] MEDS ORDERED: TRAM50TA3 PO ×2 (15:15→15:39)
== END 2023-08-05 15:37 | disposition home or self-care (01) ==
LOC: EDUNIT# 13:41 → ER 13:44
DX: S62.306A Unspecified fracture of fifth metacarpal bone, right hand, initial encounter for closed fracture (principal); F17.210 Nicotine dependence, cigarettes, uncomplicated; W22.8XXA Striking against or struck by other objects, initial encounter
CPT/HCPCS: 29125; 73130; 96372

== ENCOUNTER → 2023-08-08 | Outpatient (CLI) | payer MEDICAID ==
[~2023-08-08] MED LIST changes: +TRAM50TA3 PO
== END ==
LOC: ORTHO 14:48
PROVIDERS: ATTEND Orthopaedic Surgery
DX: S62.306D Unspecified fracture of fifth metacarpal bone, right hand, subsequent encounter for fracture with routine healing (principal)
CPT/HCPCS: 99203